=== PATIENT | female | born 1985 | race Caucasian/White ===

== ENCOUNTER 2021-05-04 22:28 | Emergency (ER) | payer OTHER ==
[~2021-05-04] VITALS: Ht 177.8 cm; Wt 90.7 kg
[~2021-05-04 22:28] MED LIST: ADVAIR HFA115 MCG/21 INH; ALBUTEROL SULF8.5 GM IH; AZITHROMYCIN 2250 MG PO; BENTYL20 MG PO; FLAGYL500 M1 PO; FLEXERIL PO; LEXAPRO 10 MG T10 M2 PO; MACROBID 100 M100 M1 PO; NORCO 5-325 TA1 EACH PO; RESTORIL15 MG PO; TOPAMAX 25 MG T25 M1 PG; TOPAMAX 25 MG T25 M1 PO; ULTRAM50 MG PO; ZYRTEC10 M5 PO
[2021-05-04] MEDS ORDERED: ALLEGRA ALLERG180 MG PO (22:44)
[2021-05-04] MEDS ORDERED: SINGULAIR 10 MG10 M1 PO (22:44)
[2021-05-04] MEDS ORDERED: SPIRIVA18 MCG INH (22:45)
[2021-05-04] MEDS ORDERED: PROAIR HFA8.5 GM INH (22:45)
[2021-05-04] MEDS ORDERED: VITAMIN D3250 MC1 PO (22:45)
[2021-05-04] MEDS ORDERED: WELLBUTRIN 100100 MG PO (22:45)
[2021-05-04] MEDS ORDERED: OMEPRAZOLE 20 M20 M1 PO (22:45)
[2021-05-04] MEDS ORDERED: HYDROCODON-ACE1 EAC7 PO (23:41)
[2021-05-04] MEDS ORDERED: NORFLEX100 MG PO (23:41)
[2021-05-04 23:53] VITALS: BP 121/71
== END 2021-05-04 23:54 | disposition home or self-care (01) ==
LOC: M.ERS 22:28
DX: S76.812A Strain of other specified muscles, fascia and tendons at thigh level, left thigh, initial encounter (principal); J45.909 Unspecified asthma, uncomplicated; Z98.51 Tubal ligation status; Z88.1 Allergy status to other antibiotic agents; Z88.2 Allergy status to sulfonamides; X50.9XXA Other and unspecified overexertion or strenuous movements or postures, initial encounter; Y93.89 Activity, other specified; Y92.89 Other specified places as the place of occurrence of the external cause; Y99.8 Other external cause status

== ENCOUNTER → 2021-11-13 | Outpatient (CLI) | payer OTHER ==
[~2021-11-13] MED LIST changes: +ALLEGRA ALLERG180 MG PO; +HYDROCODON-ACE1 EAC7 PO; +NORFLEX100 MG PO; +OMEPRAZOLE 20 M20 M1 PO; +PROAIR HFA8.5 GM INH; +SINGULAIR 10 MG10 M1 PO; +SPIRIVA18 MCG INH; +VITAMIN D3250 MC1 PO; +WELLBUTRIN 100100 MG PO
--- NOTE | 2021-11-13 15:23 | 2DMMODE ---
[place] [address] 2 D/M-MODE ECHOCARDIOGRAM Name: KD MARION Room: [facility]#: [id number] Admission: 11/13/21 Attend Phys: Andra Nicole Discharge: Date of : 89 Date of Service: 11/13/21 1523 Report #: [id number] THIS REPORT FOR: cc: Andra Marrufo MD, Tisha Darice MD Holkins,Gigi Fowler MD [facility] ~ APPROVED REPORT Study performed: 11/13/2021 14:59:40 EXAM: Comprehensive 2D, Doppler, and color-flow Echocardiogram Patient Location: Out-Patient BSA: 2.09 HR: 74 bpm BP: 110/70 mmHg Other Information Study Quality: Good Indications Dyspnea 2D Dimensions IVSd: 7.73 (7-11mm) LVOT Diam: 19.60 (18-24mm) LVDd: 46.51 mm PWd: 9.00 (7-11mm) Ascending Ao: 26.73 (22-36mm) LVDs: 32.31 (25-40mm) Aortic Root: 22.78 mm Volumes Left Atrial Volume (Systole) LA ESV Index: 15.40 mL/m2 Aortic Valve AoV Peak Paul.: 1.53 m/s AO Peak Gr.: 9.41 mmHg LVOT Max P.03 mmHg AO Mean Gr.: 5.57 mmHg LVOT Mean P.91 mmHg LVOT Max V: 1.23 m/s AO V2 VTI: 31.08 cm LVOT Mean V: 0.78 m/s LETY (VTI): 2.34 cm2 LVOT V1 VTI: 24.06 cm Mitral Valve E/A Ratio: 1.96 [place] [address] 2 D/M-MODE ECHOCARDIOGRAM Name: KD MARION Room: [facility]#: [id number] Admission: 11/13/21 Attend Phys: Andra Nicole Discharge: Date of : 89 Date of Service: 11/13/21 1523 Report #: [id number] MV Decel. Time: 205.12 ms MV E Max Paul.: 0.93 m/s MV PHT: 59.49 ms MVA (PHT): 3.70 cm2 TDI E/Lateral E': 4.65 E/Medial E': 5.81 Medial E' Paul.: 0.16 m/s Lateral E' Paul.: 0.20 m/s Pulmonary Valve PV Peak Paul.: 1.21 m/s PV Peak Gr.: 5.83 mmHg Tricuspid Valve RAP Estimate: 5.00 mmHg TR Peak Gr.: 21.65 mmHg RVSP: 26.65 mmHg PA Pressure: 26.65 mmHg Left Ventricle The left ventricle is normal size. There is normal LV segmental wall motion. There is normal left ventricular wall thickness. Left ventricular systolic function is normal. The left ventricular ejection fraction is within the normal range. LVEF is 55-60%. The left ventricular diastolic function is normal. Right Ventricle The right ventricle is normal size. The right ventricular systolic function is normal. Atria The left atrium size is normal. The right atrium size is normal. Aortic Valve Mild aortic valve sclerosis. No aortic regurgitation is present. There is no aortic valvular stenosis. Mitral Valve The mitral valve is normal in structure. There is no mitral valve regurgitation noted. No evidence of mitral valve stenosis. Tricuspid Valve The tricuspid valve is normal in structure. Mild tricuspid regurgitation[place] [address] 2 D/M-MODE ECHOCARDIOGRAM Name: KD MARION Room: [facility]#: [id number] Admission: 11/13/21 Attend Phys: Andra Nicole Discharge: Date of : 89 Date of Service: 11/13/21 1523 Report #: [id number] The pulmonary valve is normal in structure. There is no pulmonic valvular regurgitation. Great Vessels The aortic root is normal in size. IVC is normal in size and collapses >50% with inspiration. Pericardium There is no pericardial effusion. <Conclusion> The left ventricle is normal size. There is normal left ventricular wall thickness. Left ventricular systolic function is normal. The left ventricular ejection fraction is within the normal range. LVEF is 55-60%. The left ventricular diastolic function is normal. The right ventricle is normal size. The left atrium size is normal. Mild aortic valve sclerosis. No aortic regurgitation is present. There is no aortic valvular stenosis. The mitral valve is normal in structure. The tricuspid valve is normal in structure. Mild tricuspid regurgitation. IVC is normal in size and collapses >50% with inspiration. There is no pericardial effusion. There is normal LV segmental wall motion. <ELECTRONICALLY SIGNED> By: Gigi Thomas MD, FACC 11/13/21 1523 1523 1523 Gigi Thomas MD, FACC /INF
== END ==
LOC: M.CRD 13:48
PROVIDERS: ATTEND Family Medicine
DX: I08.2 Rheumatic disorders of both aortic and tricuspid valves (principal)